=== PATIENT | male | born 1990 | race Two or more races ===

== ENCOUNTER 2017-07-08 16:57 | Emergency (ER) | payer MEDICAID ==
--- NOTE | 2017-07-08 19:55 | ED Physician Documentation ---
PD HPI BACK INJURY - Stated complaint Stated Complaint: R LEG NUMBNESS - History obtained from History obtained from: Patient - History of Present Illness Location: Right, Lower Type of injury: Other (lifting object). No: Fall, Twist Where injury occurred: Work (he had had work injury a month ago, and was on limited duty, cleared for regular recently. Had recurrence of the pain with leg numbness today at home, feeling similar to the prior symptoms though. Prior pain /numbness in leg lasted about a week and treated with meds.) Timing - details: Abrupt onset Quality: Pain, Spasm Improved by: Rest Worsened by: Moving Associated symptoms: Numbness (in lateral right foot and lower leg.). No: Fever , Weakness Contributing factors: Work related (initial back pain was work, and this is recurrent pain same area.) Review of Systems Constitutional: denies: Fever, Chills GI: denies: Abdominal Pain, Nausea, Vomiting Musculoskeletal: reports: Back pain. denies: Neck pain Neurologic: reports: Numbness. denies: Focal weakness PD PAST MEDICAL HISTORY - Past Medical History Respiratory: Asthma - Past Surgical History Past Surgical History: No - Present Medications Home Medications: Ambulatory Orders Medication Instructions Recorded Confirmed Cyclobenzaprine [Flexeril] 10 mg PO TID PRN #30 tablet 07/08/17 Ibuprofen [Motrin] 600 mg PO TID #30 tab 07/08/17 Oxycodone HCl/Acetaminophen 1 each PO Q6H PRN #20 tablet 07/08/17 [Percocet 5-325 mg Tablet] - Allergies Allergies/Adverse Reactions: Allergies Allergy/AdvReac Type Severity Reaction Status Date / Time No Known Drug Allergies Allergy Verified 07/08/17 19:06 - Social History Does the pt smoke?: Yes Smoking Status: Current every day smoker Does the pt drink ETOH?: Yes Does the pt have substance abuse?: No - POLST Patient has POLST: No PD ED PE NORMAL - Vitals Vital signs reviewed: Yes - General General: Alert and oriented X 3, No acute distress, Well developed/nourished - Abdomen Abdomen: Soft, Non tender - Back Back: No CVA TTP, No spinal TTP (but is tender right lower muscles.) - Derm Derm: Normal color, Warm and dry, No rash - Extremities Extremities: No tenderness to palpate, Normal ROM s pain, No edema, No calf tenderness / cord - Neuro Neuro: Alert and oriented X 3, No motor deficit, Normal speech, Other ( decreased sensation lateral right foot. No weakness. ) Results - Vitals Vitals: Oxygen O2 Source Room air PD MEDICAL DECISION MAKING - ED course Complexity details: considered differential, d/w patient Departure - Departure Disposition: 01 Home, Self Care Clinical Impression: Back pain Qualifiers: Back pain location: low back pain Chronicity: acute Back pain laterality: right Sciatica presence: with sciatica Sciatica laterality: sciatica of right side Qualified Code(s): M54.41 - Lumbago with sciatica, right side Condition: Stable Record reviewed to determine appropriate education?: Yes Instructions: ED Sciatica Prescriptions: Cyclobenzaprine [Flexeril] 10 mg PO TID PRN #30 tablet PRN Reason: Spasms Ibuprofen [Motrin] 600 mg PO TID #30 tab Oxycodone HCl/Acetaminophen [Percocet 5-325 mg Tablet] 1 each PO Q6H PRN #20 tablet PRN Reason: Pain Comments: Ibuprofen 3 times a day. Flexeril muscle relaxant 3 times a day for stiffness and spasms. Add Tylenol or oxycodone as needed for pain. Limited lifting and bending for the next week until follow-up. Call your primary care for follow- up appointment regarding the persistent/recurrent back pain with sciatic. Forms: Activity restrictions Discharge Date/Time: 07/08/17 20:43
[2017-07-08] MEDS ORDERED: CYCLOBENZAPRINE 10 MG Prepack 2 PO PRN (20:13)
[2017-07-08] MEDS ORDERED: IBUPROFEN 600 MG TABLET PO STA (20:13)
[2017-07-08] MEDS ORDERED: DEXAMETHASONE 10 MG/ML VIAL PO STA (20:13)
[2017-07-08] MEDS ORDERED: CYCLOBENZAPRINE 10 MG TABLET PO STA (20:13)
[2017-07-08] MEDS ORDERED: oxyCOD/ACETAMIN 5 MG/325 MG TABLET PO STA (20:13)
[2017-07-08] MEDS ORDERED: oxyCOD/ACETAMIN 5 MG/325 MG TABLET PO ONE (20:24)
[2017-07-08] MEDS ORDERED: IBUPROFEN 600 MG TABLET PO ONE (20:25)
[2017-07-08] MEDS ORDERED: oxyCODONE/ACET 5/325 Prepack 4 PO ONE (20:25)
[2017-07-08] MEDS ORDERED: DEXAMETHASONE 10 MG/ML VIAL ONE (20:25)
[2017-07-08] MEDS ORDERED: CYCLOBENZAPRINE 10 MG TABLET PO ONE (20:25)
[2017-07-08] MEDS ORDERED: CHERRY SYRUP 10 ML UDC PO ONE (20:26)
[2017-07-08] MEDS ORDERED: CYCLOBENZAPRINE 10 MG Prepack 2 PO ONE (20:26)
[2017-07-08 20:36] VITALS: BP 136/86
[2017-07-08] MEDS ORDERED: oxyCODONE/ACET 5/325 Prepack 4 PO SCH (21:00)
== END 2017-07-08 20:43 | disposition home or self-care (01) ==
LOC: ED 16:57
DX: M54.41 Lumbago with sciatica, right side (principal); F17.200 Nicotine dependence, unspecified, uncomplicated
CPT/HCPCS: 99282; 99283; A9270

== ENCOUNTER 2017-07-19 08:19 | Emergency (ER) | payer MEDICAID ==
[2017-07-19] MEDS ORDERED: DEXAMETHASONE 10 MG/ML VIAL PO STA (08:35)
[2017-07-19 08:38] VITALS: BP 145/95
--- NOTE | 2017-07-19 08:38 | ED Physician Documentation ---
PD HPI BACK PAIN - Stated complaint Stated Complaint: BACK PX - History obtained from History obtained from: Patient - History of Present Illness Timing - onset: How many months ago (2) Timing - details: Still present Location: Lower, Right Quality: Pain Associated symptoms: Numbness (right lower leg/foot.). No: Fever, Weakness, Incontinent of urine Worsened by: Movement, Lifting, Twisting Recently seen: Emergency Dept (Was seen here one week ago for same.) - Treatment prior to arrival Treatment prior to arrival: Ibuprophen and cyclobenzaprine without relief. - Additional information Additional information: The patient is a 27-year-old male who presents with right lower back pain, radiating to his right foot, with numbness in the lateral aspect of his lower leg and dorsum of his foot. He injured his back 2 months ago while at work where he was lifting a dresser up a flight of stairs. He reports having persistent numbness in his right lateral pratt and over his great toe since the injury. He had been released to regular duty work, but then had re- exacerbation of his back pain. He was seen here 1 week ago with right-sided sciatic pain, and was treated with oral dexamethasone and prescribed Percocet, ibuprofen, and cyclobenzaprine. He returns today because of persistent symptoms , and states that the cyclobenzaprine only makes him sleepy. He denies fever, urinary incontinence, or decreased strength. Review of Systems Constitutional: denies: Fever Nose: denies: Congestion Throat: denies: Sore throat Cardiac: denies: Chest pain / pressure Respiratory: denies: Dyspnea, Cough GI: denies: Abdominal Pain, Nausea, Vomiting : denies: Dysuria, Incontinent Skin: denies: Rash Musculoskeletal: reports: Back pain. denies: Neck pain Neurologic: reports: Numbness. denies: Focal weakness, Headache PD PAST MEDICAL HISTORY - Past Medical History Respiratory: Asthma - Past Surgical History Past Surgical History: No - Present Medications Home Medications: Ambulatory Orders Medication Instructions Recorded Confirmed Cyclobenzaprine [Flexeril] 10 mg PO TID PRN #30 tablet 07/08/17 07/19/17 Ibuprofen [Motrin] 600 mg PO TID #30 tab 07/08/17 07/19/17 HYDROcod/ACETAM 5/325 [Vicodin 1 - 2 ea PO Q6H PRN #20 tablet 07/19/17 5/325] Prednisone 40 mg PO DAILY #10 tablet 07/19/17 - Allergies Allergies/Adverse Reactions: Allergies Allergy/AdvReac Type Severity Reaction Status Date / Time No Known Drug Allergies Allergy Verified 07/08/17 19:06 - Social History Does the pt smoke?: Yes Smoking Status: Current every day smoker Does the pt drink ETOH?: Yes Does the pt have substance abuse?: No - POLST Patient has POLST: No PD ED PE NORMAL - Vitals Vital signs reviewed: Yes (Mild hypertension initially.) - General General: Alert and oriented X 3, Well developed/nourished - HEENT HEENT: Atraumatic, EOMI - Cardiac Cardiac: RRR - Respiratory Respiratory: No respiratory distress - Abdomen Abdomen: Soft, Non tender - Back Back: No CVA TTP, No spinal TTP, Other (There is tenderness to palpation in the right sacroiliac region. There is no tenderness to palpation along spinous processes.) - Derm Derm: No rash - Extremities Extremities: No edema, No calf tenderness / cord, Other (Straight leg raise is positive on the right at 25 elevation, and is positive on the left with contralateral symptoms at 70 elevation.) - Neuro Neuro: Alert and oriented X 3, No motor deficit, Other (There is decreased light touch sensation on the lateral aspect of the right lower leg and over the medial dorsum of the right foot. Deep tendon reflexes are 2+ and equal bilaterally at the patellar and Achilles tendons.) Results - Vitals Vitals: Vital Signs - 24 hr 07/19/17 08:23 Temperature 36.3 C L Heart Rate 67 Respiratory 16 Rate Blood Pressure 145/95 H O2 Saturation 100 Oxygen O2 Source Room air PD MEDICAL DECISION MAKING - ED course Complexity details: reviewed old records, considered differential, d/w patient ED course: The patient's presentation is significant for low back pain with right sided radiculopathy, involving the right L5 sensory dermatome. I discussed potential imaging studies with the patient, advising that MRI may be clinically indicated , but is more appropriate lead done on an outpatient basis. Treatment in the emergency department included administration of dexamethasone 10 mg orally. He is being discharged with prescriptions for prednisone and for Vicodin, 20 tablets. A work release note was written. I discussed with him symptomatic treatment, outpatient follow-up, as well as potentially worrisome signs or symptoms that should prompt reevaluation in the emergency department. Departure - Departure Disposition: 01 Home, Self Care Clinical Impression: Back pain with right-sided radiculopathy Condition: Stable Instructions: ED Sciatica Follow-Up: [facility] [Provider Group] Prescriptions: HYDROcod/ACETAM 5/325 [Vicodin 5/325] 1 - 2 ea PO Q6H PRN #20 tablet PRN Reason: Pain Prednisone 40 mg PO DAILY #10 tablet Comments: Apply ice pack to your lower back intermittently for the next 5 days. Continue using ibuprofen for its anti-inflammatory effect. You can use Vicodin as prescribed if needed for pain. Take prednisone as prescribed. Follow up with your primary physician as scheduled. Return to the emergency department if you develop increasing back pain, increasing numbness or weakness, or otherwise worsening symptoms. Forms: Activity restrictions Discharge Date/Time: 07/19/17 08:48
[2017-07-19] MEDS ORDERED: DEXAMETHASONE 10 MG/ML VIAL ONE (08:44)
[2017-07-19] MEDS ORDERED: CHERRY SYRUP 10 ML UDC PO ONE (08:45)
== END 2017-07-19 08:48 | disposition home or self-care (01) ==
LOC: ED 08:19
DX: M54.16 Radiculopathy, lumbar region (principal); M54.5 Low back pain; F17.200 Nicotine dependence, unspecified, uncomplicated
CPT/HCPCS: 99283; A9270

== ENCOUNTER 2017-12-22 01:32 | Emergency (ER) | payer MEDICAID ==
[2017-12-22 01:47] VITALS: BP 144/75
--- NOTE | 2017-12-22 01:50 | ED Physician Documentation ---
PD HPI HEENT - Stated complaint Stated Complaint: TOOTHACHE - Chief complaint Chief Complaint: Heent - History obtained from History obtained from: Patient - History of Present Illness Timing - onset: How many days ago (few) Timing - duration: Days (few) Timing - details: Gradual onset, Still present Location: Tooth (left upper) Worsens: Swalllowing, Temperatures, Other (chewing) Similar symptoms before: Diagnosis (dental infections due to caries) Recently seen: Not recently seen Review of Systems Constitutional: denies: Fever, Chills Throat: reports: Dental pain / toothache. denies: Oral lesions / sores, Sore throat PD PAST MEDICAL HISTORY - Past Medical History Past Medical History: Yes Respiratory: Asthma - Past Surgical History Past Surgical History: No - Present Medications Home Medications: Ambulatory Orders Medication Instructions Recorded Confirmed Clindamycin [Cleocin] 150 mg PO QID #24 capsule 12/22/17 Oxycodone HCl/Acetaminophen 1 each PO Q6H PRN #15 tablet 12/22/17 [Percocet 5-325 mg Tablet] - Allergies Allergies/Adverse Reactions: Allergies Allergy/AdvReac Type Severity Reaction Status Date / Time No Known Drug Allergies Allergy Verified 12/22/17 01:44 - Social History Does the pt smoke?: Yes Smoking Status: Current every day smoker Does the pt drink ETOH?: Yes Does the pt have substance abuse?: No - Immunizations Immunizations are current?: Yes - POLST Patient has POLST: No PD ED PE NORMAL - Vitals Vital signs reviewed: Yes - General General: Alert and oriented X 3, Well developed/nourished - HEENT HEENT: Ears normal, Pharynx benign. No: Dentition benign (caries with bowl shaped cavity in the tooth that is tender. ) - Neck Neck: Supple, no meningeal sign, No adenopathy - Cardiac Cardiac: RRR, No murmur - Respiratory Respiratory: Clear bilaterally - Derm Derm: Normal color, Warm and dry Results - Vitals Vitals: Vital Signs - 24 hr 12/22/17 01:35 Temperature 36.7 C Heart Rate 68 Respiratory 15 Rate Blood Pressure 144/75 H O2 Saturation 99 Oxygen O2 Source Room air PD MEDICAL DECISION MAKING - ED course Complexity details: considered differential (Cavit applied in the cavity area as the shape was amenable to temp filling), d/w patient Departure - Departure Disposition: 01 Home, Self Care Clinical Impression: Pain due to dental caries, Dental infection Condition: Stable Record reviewed to determine appropriate education?: Yes Instructions: ED Abscess Dental Follow-Up: [facility] [Provider Group] Prescriptions: Clindamycin [Cleocin] 150 mg PO QID #24 capsule Oxycodone HCl/Acetaminophen [Percocet 5-325 mg Tablet] 1 each PO Q6H PRN #15 tablet PRN Reason: Pain Comments: Continue ibuprofen 2-3 times a day for pain and inflammation. Use the temporary filling in the cavity to try to reduce exposure of the nerve. He can also use topical agents such as benzocaine (Anbesol or such) or oil of clove. Use clindamycin as directed for infection. Add Tylenol or Percocet if needed for pain. Call the [facility] clinic in [place] for dental care or other dentists in the area for follow-up appointment for more definitive care of the tooth. Discharge Date/Time: 12/22/17 02:20
[2017-12-22] MEDS ORDERED: IBUPROFEN 600 MG TABLET PO STA (01:57)
[2017-12-22] MEDS ORDERED: oxyCOD/ACETAMIN 5 MG/325 MG TABLET PO STA (01:57)
[2017-12-22] MEDS ORDERED: CLINDAMYCIN 150 MG CAPSULE PO STA (01:58)
== END 2017-12-22 02:20 | disposition home or self-care (01) ==
LOC: ED 01:32
DX: K04.7 Periapical abscess without sinus (principal); K08.89 Other specified disorders of teeth and supporting structures; J45.909 Unspecified asthma, uncomplicated; F17.200 Nicotine dependence, unspecified, uncomplicated
CPT/HCPCS: 99283; A9270

== ENCOUNTER 2018-04-10 16:09 | Emergency (ER) | payer SELFPAY ==
[2018-04-10 16:47] VITALS: BP 142/94
[2018-04-10] MEDS ORDERED: PENICILLIN VK 250 MG TABLET PO STA (17:58)
--- NOTE | 2018-04-10 18:01 | ED Physician Documentation ---
PD HPI HEENT - Stated complaint Stated Complaint: TOOTH PX - Chief complaint Chief Complaint: Heent - History obtained from History obtained from: Patient - History of Present Illness Timing - duration: Days (few) Timing - details: Still present Location: Tooth Similar symptoms before: Has not had sx before - Additional information Additional information: The patient is a 28-year-old male who presents with toothache in the left upper molar. It has become gradually worse over the past few days. He reports mild left earache. He denies headache, fever, or sore throat. He denies history of similar symptoms in the past. Review of Systems Constitutional: denies: Fever Eyes: denies: Irritation Ears: reports: Ear pain (Mild left earache.) Nose: denies: Sinus pressure / pain Throat: reports: Dental pain / toothache Respiratory: denies: Dyspnea, Cough GI: denies: Nausea, Vomiting Skin: denies: Rash Musculoskeletal: denies: Neck pain Neurologic: denies: Headache PD PAST MEDICAL HISTORY - Past Medical History Past Medical History: No Respiratory: Asthma - Past Surgical History Past Surgical History: No - Present Medications Home Medications: Ambulatory Orders Medication Instructions Recorded Confirmed Penicillin V Potassium 500 mg PO QID #40 tablet 04/10/18 oxyCODONE/ACET 5/325 [Percocet 5 1 - 2 tab PO Q4-6H PRN #15 tablet 18 mg/325 mg] - Allergies Allergies/Adverse Reactions: Allergies Allergy/AdvReac Type Severity Reaction Status Date / Time No Known Drug Allergies Allergy Verified 04/10/18 16:16 - Social History Does the pt smoke?: Yes Smoking Status: Current every day smoker Does the pt drink ETOH?: No Does the pt have substance abuse?: Yes Substance Use and Type: Marijuana - Immunizations Immunizations are current?: Yes - POLST Patient has POLST: No PD ED PE NORMAL - Vitals Vital signs reviewed: Yes (Initially hypertensive.) - General General: Alert and oriented X 3, Well developed/nourished - HEENT HEENT: Atraumatic, EOMI, Ears normal, Pharynx benign, Other (There is tenderness to palpation of a left upper rear molar. There is decay of the tooth. There is no surrounding gingival swelling.) - Neck Neck: Supple, no meningeal sign, No adenopathy - Cardiac Cardiac: RRR, No murmur - Respiratory Respiratory: No respiratory distress - Derm Derm: No rash - Neuro Neuro: Alert and oriented X 3, Normal speech Results - Vitals Vitals: Oxygen O2 Source Room air PD MEDICAL DECISION MAKING - ED course Complexity details: reviewed old records, considered differential, d/w patient ED course: The patient's presentation is significant for dental pain, with possible apical abscess. There is no evidence of sinusitis, or peritonsillar abscess. Treatment in the emergency department included administration of penicillin 500 mg orally, and ibuprofen 800 mg orally. He is being discharged with prescriptions for penicillin and for Vicodin. I discussed with him the importance of follow-up with a dentist, as well as potentially worrisome signs or symptoms that should prompt reevaluation in the emergency department. Departure - Departure Disposition: 01 Home, Self Care Clinical Impression: Dental infection Condition: Stable Instructions: ED Abscess Tooth Prescriptions: oxyCODONE/ACET 5/325 [Percocet 5 mg/325 mg] 1 - 2 tab PO Q4-6H PRN #15 tablet PRN Reason: Pain Penicillin V Potassium 500 mg PO QID #40 tablet Comments: Take penicillin 4 times daily as prescribed. He can use Vicodin as prescribed if needed for pain. You can also use ibuprofen, up to 800 mg 3 times daily for its anti- inflammatory effect. Follow up with a dentist as soon as possible. Call to schedule an appointment. Return to the emergency department if you develop increasing pain, facial swelling, or otherwise worsening symptoms. Discharge Date/Time: 04/10/18 18:25
[2018-04-10] MEDS ORDERED: IBUPROFEN 800 MG TABLET PO STA (18:22)
== END 2018-04-10 18:25 | disposition home or self-care (01) ==
LOC: ED 16:09
DX: K04.7 Periapical abscess without sinus (principal); F17.200 Nicotine dependence, unspecified, uncomplicated
CPT/HCPCS: 99283; A9270

== ENCOUNTER 2018-10-21 17:17 | Emergency (ER) | payer SELFPAY ==
--- NOTE | 2018-10-21 18:08 | ED Physician Documentation ---
PD HPI HEENT - Stated complaint Stated Complaint: TOOTH PX - Chief complaint Chief Complaint: General - History obtained from History obtained from: Patient - History of Present Illness Timing - onset: How many months ago (5) Timing - duration: Months (5) Timing - details: Gradual onset, Still present, Waxing and waning Location: Tooth Improves: Medication Worsens: Swalllowing, Noise, Position, Temperatures, Everything Associated symptoms: Congestion, Other (ear and face pain) Similar symptoms before: Diagnosis (abcessed tooth) Recently seen: Not recently seen - Additional information Additional information: 28-year-old male has had a problem with his left upper molar for the past 5 months and he has not been able to get into see the dentist as yet he does have insurance and he has made contact. He is unable to tolerate the pain now and everything that he does seems to make this worse. He has had some improvement with antibiotics previously. Review of Systems Constitutional: denies: Fever Eyes: denies: Decreased vision Ears: reports: Ear pain Nose: reports: Congestion Throat: reports: Dental pain / toothache Respiratory: denies: Cough GI: denies: Vomiting PD PAST MEDICAL HISTORY - Past Medical History Past Medical History: No Respiratory: Asthma - Past Surgical History Past Surgical History: No - Present Medications Home Medications: Ambulatory Orders Medication Instructions Recorded Confirmed Hydrocodone/Acetaminophen 1 - 2 each PO Q6H PRN #14 tablet 10/21/18 [Hydrocodon-Acetaminophen 5-325] Penicillin V Potassium 500 mg PO Q6HR #40 tablet 10/21/18 - Allergies Allergies/Adverse Reactions: Allergies Allergy/AdvReac Type Severity Reaction Status Date / Time No Known Drug Allergies Allergy Verified 10/21/18 17:30 - Social History Does the pt smoke?: Yes Smoking Status: Current every day smoker Does the pt drink ETOH?: No Does the pt have substance abuse?: No - Immunizations Immunizations are current?: Yes - POLST Patient has POLST: No PD ED PE NORMAL - Vitals Vital signs reviewed: Yes (hypertensive ) - General General: Alert and oriented X 3, No acute distress, Well developed/nourished - HEENT HEENT: Atraumatic, PERRL, EOMI, Pharynx benign, Other (both TM's are occluded with cerumen the left upper molar is broken with a hole laterally. There are multiple missing teeth. ) - Cardiac Cardiac: RRR, No murmur - Respiratory Respiratory: No respiratory distress - Derm Derm: Normal color, Warm and dry, No rash - Extremities Extremities: No deformity, No edema - Neuro Neuro: Alert and oriented X 3, dog or animal sitter 2-12 intact, No motor deficit, No sensory deficit, Normal speech Eye Opening: Spontaneous Motor: Obeys Commands Verbal: Oriented GCS Score: 15 - Psych Psych: Normal mood, Normal affect Results - Vitals Vitals: Vital Signs - 24 hr 10/21/18 17:28 Temperature 36.9 C Heart Rate 57 L Respiratory 18 Rate Blood Pressure 139/83 H O2 Saturation 100 Oxygen O2 Source Room air PD MEDICAL DECISION MAKING - ED course Complexity details: reviewed old records, considered differential, d/w patient ED course: 28 y/o male with a broken upper molar is administered CAVIT to the broken tooth and instructed in its use. Departure - Departure Disposition: 01 Home, Self Care Clinical Impression: Dental abscess Condition: Stable Instructions: ED Abscess Dental Follow-Up: [facility] [Provider Group] Prescriptions: Penicillin V Potassium 500 mg PO Q6HR #40 tablet Hydrocodone/Acetaminophen [Hydrocodon-Acetaminophen 5-325] 1 - 2 each PO Q6H PRN #14 tablet PRN Reason: pain
[2018-10-21 18:34] VITALS: BP 135/80
== END 2018-10-21 18:15 | disposition home or self-care (01) ==
LOC: ED 17:17
DX: K04.7 Periapical abscess without sinus (principal); F17.200 Nicotine dependence, unspecified, uncomplicated
CPT/HCPCS: 99283

== ENCOUNTER 2019-12-25 22:05 | Emergency (ER) | payer MEDICAID ==
--- NOTE | 2019-12-25 22:11 | ED Physician Documentation ---
PD HPI MALE - Stated complaint Stated Complaint: MALE /PX - History obtained from History obtained from: Patient - History of Present Illness Timing - onset: How many weeks ago (2) Timing - details: Gradual onset, Intermittant, Waxing and waning Pain level max: 8 Pain level now: 4 Associated symptoms: Testiclar pain. No: Dysuria, Urinary frequency, Discharge, Scrotal swelling Similar symptoms before: Has not had sx before Recently seen: Not recently seen - Additional information Additional information: c/o 2 weeks of intermittent right testicular pain. denies injury. 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 Review of Systems Constitutional: denies: Fever, Chills, Sweats GI: denies: Abdominal Pain : reports: Testicular pain. denies: Dysuria, Frequency, Discharge PD PAST MEDICAL HISTORY - Past Medical History Respiratory: Asthma - Past Surgical History Past Surgical History: No - Present Medications Home Medications: Ambulatory Orders Medication Instructions Recorded Confirmed Hydrocodone/Acetaminophen 1 - 2 each PO Q6H PRN #14 tablet 10/21/18 [Hydrocodon-Acetaminophen 5-325] Penicillin V Potassium 500 mg PO Q6HR #40 tablet 10/21/18 - Allergies Allergies/Adverse Reactions: Allergies Allergy/AdvReac Type Severity Reaction Status Date / Time No Known Drug Allergies Allergy Verified 12/25/19 22:13 - Social History Does the pt smoke?: Yes Smoking Status: Current every day smoker Does the pt drink ETOH?: No Does the pt have substance abuse?: No - Immunizations Immunizations are current?: Yes - POLST Patient has POLST: No PD ED PE NORMAL - Vitals Vital signs reviewed: Yes - General General: Alert and oriented X 3, No acute distress, Well developed/nourished PD ED PE EXPANDED - Male Male : Normal Exam, Circumcised, Testes descended celestine, Normal lie/cremastaric, Tenderness (mild right testicular tenderness; no visible nor palpable right inguinal / scrotal hernia, including with valsalva). No: Skin lesions, Discharge, Testicular Mass Results - Vitals Vitals: Oxygen O2 Source Room air - Rads (name of study) testicular US Radiology: Prelim report reviewed, See rad report PD MEDICAL DECISION MAKING - ED course Complexity details: reviewed results, re-evaluated patient, considered different ial, d/w patient Departure - Departure Disposition: Home, Self Care Clinical Impression: Testicular pain, right Condition: Good Instructions: ED Testicular Pain [facility] Discharge Date/Time: 12/26/19 01:13
--- NOTE | 2019-12-25 23:45 | Ultrasound Report ---
Reason: right testicular pain Procedure Date: 12/25/2019 Accession Number: [id number] / [id number] Procedure: US - Testicle w/Doppler CPT Code: Final Report FULL RESULT: EXAM: SCROTAL ULTRASOUND EXAM DATE: 12/25/2019 10:56 PM. CLINICAL HISTORY: Right testicular pain. COMPARISON: None. TECHNIQUE: Real-time scanning was performed with static images obtained. Color-flow images were utilized. FINDINGS: Right: Testis: 5.1 x 2.3 x 3.2 cm. Normal size and echotexture. No mass, calcification, or abnormal blood flow. Epididymis: 1.1 x 1 cm. Normal size and echotexture. No mass or abnormal blood flow. Hydrocele: Small. Varicocele: None. Left: Testis: 4.6 x 2.3 x 3.2 cm. Normal size and echotexture. No mass, calcification, or abnormal blood flow. Epididymis: 1.5 x 1.3 cm. Normal size and echotexture. No mass or abnormal blood flow. Hydrocele: None. Varicocele: None. Note is made of a hypervascular area in the soft tissues in the bilateral scrotal sanderson, likely vessels or other normal anatomic structure given the symmetry. IMPRESSION: No acute sonographic abnormality. No orchitis, epididymitis, or torsion. RADIA
[2019-12-26 01:09] VITALS: BP 131/78
== END 2019-12-26 01:13 | disposition home or self-care (01) ==
LOC: ED 22:05
DX: N50.811 Right testicular pain (principal); F17.200 Nicotine dependence, unspecified, uncomplicated
CPT/HCPCS: 76870; 93975; 99282; 99284

== ENCOUNTER 2020-12-29 16:49 | Emergency (ER) | payer MEDICAID ==
--- NOTE | 2020-12-29 17:59 | ED Physician Documentation ---
PD HPI FOCAL NEURO - Stated complaint Stated Complaint: LIGHTHEADED,RT HAND NUMB - Chief complaint Chief Complaint: Neuro - History obtained from History obtained from: Patient - Additional information Additional information: For many years this otherwise healthy 30-year-old gentleman gets an occasional burning sharp pain in the bottom of his feet when his feet are stimulated. That has been more frequent lately. Over the last 3 days he has felt lightheaded especially with position changes but sometimes without position changes and he notes numbness of the first through third digits in his right, dominant hand noting that he is a guadarrama. No weight changes. NO Sweats. Review of Systems Ten Systems: 10 systems reviewed and negative Constitutional: reports: Reviewed and negative Ears: reports: Reviewed and negative Nose: reports: Reviewed and negative Throat: reports: Reviewed and negative Cardiac: reports: Reviewed and negative Respiratory: reports: Reviewed and negative PD PAST MEDICAL HISTORY - Past Medical History Respiratory: Asthma - Past Surgical History Past Surgical History: No - Present Medications Home Medications: Ambulatory Orders Medication Instructions Recorded Confirmed Gabapentin [Neurontin] 300 mg PO TID #30 cap 12/29/20 - Allergies Allergies/Adverse Reactions: Allergies Allergy/AdvReac Type Severity Reaction Status Date / Time No Known Drug Allergies Allergy Verified 12/29/20 17:00 - Social History Does the pt smoke?: Yes Smoking Status: Current every day smoker Does the pt drink ETOH?: No Does the pt have substance abuse?: No - Immunizations Immunizations are current?: Yes - POLST Patient has POLST: No PD ED PE NORMAL - Vitals Vital signs reviewed: Yes - General General: Alert and oriented X 3, No acute distress - HEENT HEENT: PERRL, EOMI - Neck Neck: Supple, no meningeal sign, No bony TTP - Cardiac Cardiac: RRR, No murmur - Respiratory Respiratory: No respiratory distress, Clear bilaterally - Abdomen Abdomen: Non tender - Extremities Extremities: Other - Neuro Neuro: Alert and oriented X 3, Normal speech, Other (Mild numbness in the right first through first fingers with positive Tinel's sign consistent with carpal tunnel syndrome. Mild hyporeflexia in the lower extremities with normal sensation throughout the lower extremities.) Eye Opening: Spontaneous Motor: Obeys Commands Verbal: Oriented GCS Score: 15 Results - Vitals Vitals: Vital Signs - 24 hr 02/04/21 02/04/21 16:52 18:49 Temperature 36.6 C 36.8 C Heart Rate 73 58 L Respiratory 16 15 Rate Blood Pressure 144/74 H 144/67 H O2 Saturation 97 98 Oxygen O2 Source Room air - Labs Labs: Laboratory Tests 12/29/20 12/29/20 12/29/20 18:04 18:13 18:13 WBC 7.3 RBC 4.71 Hgb 14.8 Hct 43.6 MCV 92.6 MCH 31.4 H MCHC 33.9 RDW 12.0 Plt Count 210 MPV 9.9 Neut # (Auto) 4.3 Lymph # (Auto) 2.3 [place] # (Auto) 0.6 Eos # (Auto) 0.2 Baso # (Auto) 0.0 Absolute Nucleated RBC 0.00 Nucleated RBC % 0.0 Sodium 141 Potassium 3.7 Chloride 101 Carbon Dioxide 27 Anion Gap 13.0 BUN 16 Creatinine 1.2 Estimated GFR (MDRD) 72 L Glucose 90 Calcium 9.4 Magnesium 2.0 Total Bilirubin 2.0 H AST 46 H ALT 28 Alkaline Phosphatase 64 Total Protein 7.3 Albumin 4.5 Globulin 2.8 Albumin/Globulin Ratio 1.6 Urine Color YELLOW Urine Clarity CLEAR Urine pH 6.5 Ur Specific [place] 1.025 Urine Protein NEGATIVE Urine Glucose (UA) NEGATIVE Urine Ketones TRACE Urine Occult Blood NEGATIVE Urine Nitrite NEGATIVE Urine Bilirubin NEGATIVE Urine Urobilinogen 1 (NORMAL) Ur Leukocyte Esterase NEGATIVE Ur Microscopic Review NOT INDICATED Urine Culture Comments NOT INDICATED Urine Opiates Screen NEGATIVE Ur Oxycodone Screen NEGATIVE Urine Methadone Screen NEGATIVE Ur Propoxyphene Screen NEGATIVE Ur Barbiturates Screen NEGATIVE Ur Tricyclics Screen NEGATIVE Ur Phencyclidine Scrn NEGATIVE Ur Amphetamine Screen NEGATIVE U Methamphetamines Scrn NEGATIVE U Benzodiazepines Scrn NEGATIVE Urine Cocaine Screen NEGATIVE U Cannabinoids Screen POSITIVE H PD MEDICAL DECISION MAKING - ED course ED course: 30-year-old gentleman with some complaints that may or may not be related. He clearly has carpal tunnel syndrome in the right hand. Long-term he is get occasional paresthesias and neuropathic sounding pain in the bottom of his feet. He is nonalcoholic, not a diabetic. No family history of same. Work-up here was negative and close follow-up with PCP and neurology was advised. Also hand surgery for the carpal tunnel. Departure - Departure Disposition: 01 Home, Self Care Clinical Impression: Carpal tunnel syndrome of right wrist, Paresthesia, Dizziness Condition: Good Record reviewed to determine appropriate education?: Yes Instructions: ED Carpal Tunnel, ED Dizziness UKO Prescriptions: Gabapentin [Neurontin] 300 mg PO TID #30 cap Comments: No serious or urgent cause of your current symptoms was found. You do have carpal tunnel syndrome in the right hand. For that you can follow-up with a hand surgeon such as: Alexandra Bacon [facility] [address] [place] [address] Drive, [address] [place] [address] For the other issues you need to set up with a primary care physician and potentially get a neurology referral. Some are listed on this form, start calling around tomorrow. Return for new or worsening symptoms. You can try the gabapentin prescribed as needed for the pain in your feet. Do not drink or drive while taking it though. Discharge Date/Time: 12/29/20 18:50
[2020-12-29 18:07] LABS: MUDS CUTOFF CONCENTRATIONS CUTOFF CONC BELOW:
[2020-12-29 18:09] LABS: BILIRUBIN,URINE NEGATIVE (NEGATIVE); GLUCOSE, URINE (UA) NEGATIVE (NEGATIVE); KETONES,URINE (UA) TRACE mg/dL (NEGATIVE); LEUKOCYTE ESTERASE, URINE NEGATIVE (NEGATIVE); NITRITE,URINE NEGATIVE (NEGATIVE); OCCULT BLOOD,URINE NEGATIVE (NEGATIVE); PH,URINE 6.5 PH (5.0-7.5); PROTEIN,URINE NEGATIVE (NEGATIVE); UROBILINOGEN,URINE 1 (NORMAL) E.U./dL (NORMAL)
[2020-12-29 18:11] LABS: CLARITY,URINE CLEAR (CLEAR)
[2020-12-29 18:18] LABS: BASOPHILS % (AUTO) 0.4 %; EOSINOPHILS # (AUTO) 0.2 10^3/uL (0.0-0.7); HCT - HEMATOCRIT 43.6 % (42.0-52.0); HGB - HEMOGLOBIN 14.8 g/dL (14.0-18.0); LYMPHOCYTES # (AUTO) 2.3 10^3/uL (1.5-3.5); LYMPHOCYTES % (AUTO) 31.1 %; MEAN CORPUSCULAR HEMOGLOBIN 31.4 pg (27.0-31.0); MEAN CORPUSCULAR HGB CONC 33.9 g/dL (32.0-36.0); MEAN CORPUSCULAR VOLUME 92.6 fL (80.0-94.0); MEAN PLATELET VOLUME 9.9 fL (7.4-11.4); MONOCYTES # (AUTO) 0.6 10^3/uL (0.0-1.0); MONOCYTES % (AUTO) 7.5 %; NEUTROPHILS # (AUTO) 4.3 10^3/uL (1.5-6.6); NEUTROPHILS % (AUTO) 58.6 %; PLT - PLATELET COUNT 210 10^3/uL (130-450); RED BLOOD COUNT 4.71 10^6/uL (4.70-6.10); WHITE BLOOD COUNT 7.3 x10^3/uL (4.8-10.8)
[2020-12-29 18:19] LABS: AMPHETAMINE SCREEN,URINE NEGATIVE (NEGATIVE); BARBITURATE SCREEN,UR NEGATIVE (NEGATIVE); BENZODIAZEPINES SCREEN, URINE NEGATIVE (NEGATIVE); COCAINE SCREEN URINE NEGATIVE (NEGATIVE); METHADONE SCREEN, URINE NEGATIVE (NEGATIVE); METHAMPHETAMINES SCREEN, URINE NEGATIVE (NEGATIVE); OPIATE SCREEN, URINE NEGATIVE (NEGATIVE); OXYCODONE SCREEN, URINE NEGATIVE (NEGATIVE); PROPOXYPHENE SCREEN, URINE NEGATIVE (NEGATIVE); THC CANNABINOID SCREEN, URINE POSITIVE (NEGATIVE); TRICYCLIC ANTIDEPRESSANT,URINE NEGATIVE (NEGATIVE)
[2020-12-29 18:32] LABS: ALBUMIN 4.5 g/dL (3.2-5.5); ALBUMIN/GLOBULIN RATIO 1.6 (1.0-2.2); CALCIUM 9.4 mg/dL (8.5-10.3); CREATININE 1.2 mg/dL (0.6-1.2); POTASSIUM 3.7 mmol/L (3.5-5.0); TOTAL PROTEIN 7.3 g/dL (6.7-8.2)
[2020-12-29 18:50] VITALS: BP 144/67
== END 2020-12-29 18:50 | disposition home or self-care (01) ==
LOC: ED 16:49
DX: G56.01 Carpal tunnel syndrome, right upper limb (principal); R20.2 Paresthesia of skin; R42 Dizziness and giddiness; F17.200 Nicotine dependence, unspecified, uncomplicated
CPT/HCPCS: 36415; 80053; 80306; 81001; 81003; 83735; 85025; 87086; 99283; 99284

== ENCOUNTER 2021-08-06 13:43 | Emergency (ER) | payer MEDICAID ==
[2021-08-06 13:54] VITALS: BP 140/70
[2021-08-06] MEDS ORDERED: AMOXICILLIN 250 MG CAPSULE PO STA (15:46)
--- NOTE | 2021-08-06 15:50 | ED Physician Documentation ---
PD HPI HEENT - Stated complaint Stated Complaint: TOOTH PX - Chief complaint Chief Complaint: Heent - History obtained from History obtained from: Patient - Additional information Additional information: Patient comes emergency department chief complaint of left mandibular pain around the area of his left mandibular wisdom tooth. He states that last week the top of the tooth broke and that he has had pain since. He feels it radiated into his left zoroastrian and feels a fullness just under his jawline at the top of his neck on the left. No fevers or chills. No difficulty speaking or swallowing. No difficulty breathing. No other complaints at this time. Review of Systems Ten Systems: 10 systems reviewed and negative Constitutional: reports: Reviewed and negative Eyes: reports: Reviewed and negative Ears: reports: Reviewed and negative Nose: reports: Reviewed and negative Throat: reports: Dental pain / toothache Cardiac: reports: Reviewed and negative Respiratory: reports: Reviewed and negative GI: reports: Reviewed and negative : reports: Reviewed and negative Skin: reports: Reviewed and negative Musculoskeletal: reports: Reviewed and negative Neurologic: reports: Reviewed and negative Psychiatric: reports: Reviewed and negative Endocrine: reports: Reviewed and negative Immunocompromised: reports: Reviewed and negative PD PAST MEDICAL HISTORY - Past Medical History Respiratory: Asthma - Past Surgical History Past Surgical History: No - Present Medications Home Medications: Ambulatory Orders Medication Instructions Recorded Confirmed Gabapentin [Neurontin] 300 mg PO TID #30 cap 12/29/20 Amoxicillin 500 mg PO TID 7 Days #21 08/06/21 HYDROcod/ACETAM 5/325 [[place] 5/325] 1 - 2 tablet PO Q6H PRN #14 tablet 08/06/21 - Allergies Allergies/Adverse Reactions: Allergies Allergy/AdvReac Type Severity Reaction Status Date / Time No Known Drug Allergies Allergy Verified 08/06/21 13:51 - Social History Does the pt smoke?: Yes Smoking Status: Current every day smoker Does the pt drink ETOH?: No Does the pt have substance abuse?: No - Immunizations Immunizations are current?: Yes - POLST Patient has POLST: No PD ED PE NORMAL - Vitals Vital signs reviewed: Yes - General General: Alert and oriented X 3, No acute distress, Well developed/nourished - HEENT HEENT: Atraumatic, PERRL, EOMI, Moist mucous membranes, Other (Partially decayed and fractured left mandibular wisdom tooth noted. No gingival edema or fluc tuance. No drainage. Patient has moderately poor dentition. No facial swelling.) - Neck Neck: Supple, no meningeal sign, Other (Shotty left anterior superior lymph node) - Respiratory Respiratory: No respiratory distress - Derm Derm: Normal color, Warm and dry, No rash - Extremities Extremities: No deformity - Neuro Neuro: Alert and oriented X 3, mapping engineer 2-12 intact, Normal speech - Psych Psych: Normal mood, Normal affect Results - Vitals Vitals: Vital Signs - 24 hr 08/06/21 13:51 Temperature 36.7 C Heart Rate 60 Respiratory 16 Rate Blood Pressure 140/70 H O2 Saturation 98 Oxygen O2 Source Room air PD MEDICAL DECISION MAKING - ED course Complexity details: considered differential, d/w patient ED course: Patient is given a dose of amoxicillin here in the emergency department. He was given prescriptions for amoxicillin and hydrocodone for home. I have given him the contact information for [facility] and also for Dr. Quiñones. We have discussed the usual indications for return. Departure - Departure Disposition: 01 Home, Self Care Clinical Impression: Dental infection Condition: Stable Instructions: ED Tooth Pain, ED Abscess Dental Follow-Up: Carlos Quiñones DDS [Provider Admit Priv/Credential] - CARLOS QUIÑONES [Physician No Access] - Prescriptions: Amoxicillin 500 mg PO TID 7 Days #21 HYDROcod/ACETAM 5/325 [[place] 5/325] 1 - 2 tablet PO Q6H PRN #14 tablet PRN Reason: Pain Comments: Your Vicodin prescription has been sent to [facility] pharmacy in [place]. The system would not let the amoxicillin prescription be sent electronically, so you will be given a paper prescription for this. 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 Please call the dental office as soon as you can to set up a follow-up appointment for definitive management of your bothersome teeth. [facility] dental clinic will probably be the best option for you. You can reach them at [phone]. Dr. Carlos Quiñones is an oral surgeon in [place] you may see if [facility] is unwilling to pull your tooth for you.
== END 2021-08-06 16:18 | disposition home or self-care (01) ==
LOC: ED 13:43
DX: K04.7 Periapical abscess without sinus (principal); F17.200 Nicotine dependence, unspecified, uncomplicated
CPT/HCPCS: 99282; 99284; A9270

== ENCOUNTER 2021-10-04 18:04 | Emergency (ER) | payer MEDICAID ==
[2021-10-04 18:14] VITALS: BP 153/91
--- NOTE | 2021-10-04 18:55 | ED Physician Documentation ---
PD HPI HEENT - Stated complaint Stated Complaint: TOOTH PX - Chief complaint Chief Complaint: Heent - History obtained from History obtained from: Patient - History of Present Illness Timing - onset: How many days ago (33) Timing - duration: Days Timing - details: Gradual onset, Still present Location: Tooth Improves: Medication Worsens: Everything Associated symptoms: Congestion, Facial swelling, Headache. No: Fever Similar symptoms before: Diagnosis (bad tooth) Recently seen: Not recently seen - Additional information Additional information: 31-year-old male with poor dentition has a left lower molar that is broken and this has broken further and now the patient is sensitive to heat cold essentially everything and has severe pain in his left lower molar. He feels it is the worst it has ever been. He has had an issue with his left lower molar for some time and he has an appointment to see a dentist on the . Review of Systems Constitutional: denies: Fever Eyes: denies: Photophobia Ears: denies: Ear pain Nose: reports: Congestion. denies: Rhinorrhea / runny nose Throat: reports: Dental pain / toothache Cardiac: denies: Chest pain / pressure Respiratory: denies: Dyspnea, Cough GI: denies: Vomiting : denies: Dysuria, Frequency PD PAST MEDICAL HISTORY - Past Medical History Past Medical History: Yes Cardiovascular: None Respiratory: Asthma Neuro: None Endocrine/Autoimmune: None GI: None : None HEENT: None Psych: None Musculoskeletal: None - Past Surgical History Past Surgical History: No - Present Medications Home Medications: Ambulatory Orders Medication Instructions Recorded Confirmed Gabapentin [Neurontin] 300 mg PO TID #30 cap 12/29/20 Amoxicillin 500 mg PO TID 7 Days #21 08/06/21 HYDROcod/ACETAM 5/325 [[place] 5/325] 1 - 2 tablet PO Q6H PRN #14 tablet 08/06/21 Amoxicillin 875 mg PO BID #14 tablet 10/04/21 HYDROcod/ACETAM 5/325 [[place] 5/325] 1 - 2 tablet PO Q6H PRN #14 tablet 10/04/21 - Allergies Allergies/Adverse Reactions: Allergies Allergy/AdvReac Type Severity Reaction Status Date / Time No Known Drug Allergies Allergy Verified 10/04/21 18:14 - Social History Does the pt smoke?: Yes Smoking Status: Current every day smoker Does the pt drink ETOH?: No Does the pt have substance abuse?: No - Immunizations Immunizations are current?: Yes - POLST Patient has POLST: No PD ED PE NORMAL - Vitals Vital signs reviewed: Yes (hypertension ) - General General: Alert and oriented X 3, Well developed/nourished, Other (Patient appears to be in pain with striker out tone and flattened affect.) - HEENT HEENT: Atraumatic, PERRL, EOMI, Other (The left lower molar is broken a large portion of the pulp is exposed. The area is sensitive there is some surrounding erythema and tenderness.) - Neck Neck: Supple, no meningeal sign, No bony TTP - Respiratory Respiratory: No respiratory distress - Derm Derm: Normal color, Warm and dry, No rash - Extremities Extremities: No deformity, No edema - Neuro Neuro: Alert and oriented X 3, wool fleece grader 2-12 intact, No motor deficit, No sensory deficit, Normal speech Eye Opening: Spontaneous Motor: Obeys Commands Verbal: Oriented GCS Score: 15 - Psych Psych: Normal mood, Other (Affect is flat with the presentation of pain) Results - Vitals Vitals: Vital Signs - 24 hr 10/04/21 18:12 Temperature 37 C Heart Rate 80 Respiratory 18 Rate Blood Pressure 153/91 H Oxygen O2 Source Room air PD MEDICAL DECISION MAKING - ED course Complexity details: considered differential, d/w patient ED course: 31-year-old male with a broken left lower molar has exposed pulp and significant pain associated with this. The bed of the tooth is cleansed with a cotton- tipped applicator and [place] is pressed into the defect. The patient is instru cted on its use and he indicates he has used this previously. We will place him on some antibiotic and Give some short-term pain relief. I initially thought the patient had been seen numerous times for the same tooth only to find out with good review his record that I have seen him once 3 years ago and he has again been seen last month. He has not exceeded our narcotic policy. Departure - Departure Disposition: 01 Home, Self Care Clinical Impression: Pain, dental Broken tooth Qualifiers: Encounter type: initial encounter Fracture type: closed Qualified Code(s): S02.5XXA - Fracture of tooth (traumatic), initial encounter for closed fracture Condition: Stable Instructions: ED Tooth Pain Follow-Up: Your, dentist as planned [Other] Prescriptions: Amoxicillin 875 mg PO BID #14 tablet HYDROcod/ACETAM 5/325 [[place] 5/325] 1 - 2 tablet PO Q6H PRN #14 tablet PRN Reason: Pain
== END 2021-10-04 19:15 | disposition home or self-care (01) ==
LOC: ED 18:04
DX: K03.81 Cracked tooth (principal); F17.200 Nicotine dependence, unspecified, uncomplicated
CPT/HCPCS: 99282; 99284

== ENCOUNTER 2022-12-12 19:08 | Emergency (ER) | payer MEDICAID ==
[2022-12-12 20:32] LABS: BASOPHILS % (AUTO) 0.6 %; EOSINOPHILS # (AUTO) 0.2 10^3/uL (0.0-0.7); EOSINOPHILS % (AUTO) 2.7 %; HCT - HEMATOCRIT 44.5 % (42.0-52.0); HGB - HEMOGLOBIN 14.4 g/dL (14.0-18.0); LYMPHOCYTES # (AUTO) 1.6 10^3/uL (1.5-3.5); LYMPHOCYTES % (AUTO) 22.9 %; MEAN CORPUSCULAR HEMOGLOBIN 30.5 pg (27.0-31.0); MEAN CORPUSCULAR HGB CONC 32.4 g/dL (32.0-36.0); MEAN CORPUSCULAR VOLUME 94.3 fL (80.0-94.0); MONOCYTES # (AUTO) 0.5 10^3/uL (0.0-1.0); MONOCYTES % (AUTO) 7.1 %; NEUTROPHILS # (AUTO) 4.7 10^3/uL (1.5-6.6); NEUTROPHILS % (AUTO) 66.4 %; PLT - PLATELET COUNT 233 10^3/uL (130-450); RED BLOOD COUNT 4.72 10^6/uL (4.70-6.10); RED CELL DISTRIBUTION WIDTH 12.4 % (12.0-15.0)
[2022-12-12 20:46] LABS: ALBUMIN 4.1 g/dL (3.2-5.5); ALBUMIN/GLOBULIN RATIO 1.4 (1.0-2.2); BILIRUBIN,TOTAL 1.1 mg/dL (0.2-1.0); CALCIUM 8.9 mg/dL (8.5-10.3); CREATININE 0.8 mg/dL (0.6-1.2); POTASSIUM 3.8 mmol/L (3.5-5.0)
--- NOTE | 2022-12-12 21:16 | ED Physician Documentation ---
History of Present Illness - Stated complaint Stated Complaint: HANDS,FEET SORE - Chief complaint Chief Complaint: Ext Problem - Additonal information Additional information: 32-year-old male presents emergency department for evaluation of swelling in both his hands and feet. This has been ongoing now for a number of weeks. He typically wakes up in the morning with swollen hands and feet but is he gets going throughout the day the swelling goes away. 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 He denies any chest pain or dyspnea. There is no orthopnea. No history of injection drug use. No recent fevers or chest pain. No abdominal pain or vomiting. Patient is a good historian. Review of Systems Constitutional: reports: Reviewed and negative Cardiac: reports: Pedal edema (And hand swelling) Respiratory: reports: Reviewed and negative GI: reports: Reviewed and negative : reports: Reviewed and negative Skin: reports: Reviewed and negative PD PAST MEDICAL HISTORY - Past Medical History Past Medical History: Yes Cardiovascular: None Respiratory: Asthma Neuro: None Endocrine/Autoimmune: None GI: None : None HEENT: None Psych: None Musculoskeletal: Other Derm: Other Other Past Medical History: L wrist carpal tunnel syndrome: Pilonidal Cyst - Past Surgical History Past Surgical History: No - Present Medications Home Medications: Ambulatory Orders Medication Instructions Recorded Confirmed No Known Home Medications 12/12/22 12/12/22 - Allergies Allergies/Adverse Reactions: Allergies Allergy/AdvReac Type Severity Reaction Status Date / Time No Known Drug Allergies Allergy Verified 12/12/22 19:31 - Social History Does the pt smoke?: Yes Smoking Status: Current every day smoker Does the pt drink ETOH?: No Does the pt have substance abuse?: No - Immunizations Immunizations are current?: Yes - POLST Patient has POLST: No PD ED PE NORMAL - General General: Alert and oriented X 3, No acute distress - HEENT HEENT: PERRL - Neck Neck: Supple, no meningeal sign, No adenopathy - Cardiac Cardiac: RRR, No murmur, Strong equal pulses, Other (Faint pedal edema bilaterally. No swelling noted of the upper extremities) - Respiratory Respiratory: No respiratory distress - Abdomen Abdomen: Normal bowel sounds, Soft - Derm Derm: Normal color, Warm and dry, No rash Results - Vitals Vitals: Vital Signs - 24 hr 12/12/22 19:32 Temperature 36.9 C Heart Rate 61 Respiratory 16 Rate Blood Pressure 117/85 H O2 Saturation 100 Oxygen O2 Source Room air - Labs Labs: Laboratory Tests 12/12/22 12/12/22 12/12/22 20:28 20:28 20:28 WBC 7.0 RBC 4.72 Hgb 14.4 Hct 44.5 MCV 94.3 H MCH 30.5 MCHC 32.4 RDW 12.4 Plt Count 233 MPV 9.0 Neut # (Auto) 4.7 Lymph # (Auto) 1.6 [place] # (Auto) 0.5 Eos # (Auto) 0.2 Baso # (Auto) 0.0 Absolute Nucleated RBC 0.00 Nucleated RBC % 0.0 Sodium 134 L Potassium 3.8 Chloride 97 L Carbon Dioxide 28 Anion Gap 9.0 BUN 13 Creatinine 0.8 Estimated GFR (MDRD) 113 Glucose 117 H Calcium 8.9 Total Bilirubin 1.1 H AST 50 H ALT 60 Alkaline Phosphatase 70 B-Natriuretic Peptide 12 Total Protein 7.0 Albumin 4.1 Globulin 2.9 Albumin/Globulin Ratio 1.4 Lipase 27 PD Medical Decision Making - ED course Complexity details: considered differential, d/w patient ED course: This is a well-appearing 32-year-old male that presents emergency department for evaluation of swelling for the last few weeks that he notices in both his hands and feet when he wakes up. But is he goes about through the morning and day it goes away. 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 9 here in the emergency department there is very faint pedal edema only. Cardiopulmonary auscultation was unremarkable. He had no worrisome vital sign abnormalities. We did obtain a CBC to rule out worrisome anemia which was negative. His electrolytes showed normal abnormal renal or liver function. A BNP was negative making congestive heart failure unlikely. I suspect that the cause of his swelling is tissue edema secondary to trauma and inflammation. I have encouraged him to discuss this visit closely with his primary care provider. No medications were ordered on discharge as clinically I do not think he would benefit from a diuretic. Emergent worrisome return precautions discussed Departure - Departure Disposition: 01 Home, Self Care Clinical Impression: Bilateral hand swelling, Swollen feet Condition: Stable Record reviewed to determine appropriate education?: Yes Comments: Josh came to the emergency department today because you have had some swelling in both your hands and feet that is been ongoing for a few weeks. It is worse in the morning but improves during the day as you get up and walk around. I suspect that the swelling is simply due to arthritis and joint pain/trauma. Today in the emergency department we did obtain a CBC that showed no worrisome anemia. Your kidney and liver function is normal. We did do a lab called a BNP or beta natruretic peptide that did not indicate any findings to suggest congestive heart failure
[2022-12-12 21:25] VITALS: BP 147/66
== END 2022-12-12 21:24 | disposition home or self-care (01) ==
LOC: ED 19:08
DX: R22.43 Localized swelling, mass and lump, lower limb, bilateral (principal); R22.33 Localized swelling, mass and lump, upper limb, bilateral
CPT/HCPCS: 36415; 80053; 83690; 83880; 85025; 99283